=== PATIENT | male | born 1985 | race Caucasian/White ===

== ENCOUNTER → 2021-12-20 | Outpatient (REF) | payer BC | LOC: M LAB REF 22:59 | PROVIDERS: ATTEND Physician Assistant | DX: Z53.9 Procedure and treatment not carried out, unspecified reason (principal) ==

== ENCOUNTER → 2021-12-23 | Outpatient (CLI) | payer BC | LOC: M WUC 10:12 | PROVIDERS: ATTEND Physician Assistant | DX: A60.01 Herpesviral infection of penis (principal) ==